=== PATIENT | male | born 1975 | race African-American/Black ===

== ENCOUNTER 2021-01-18 01:32 | Emergency (ER) | payer SELFPAY ==
--- NOTE | 2021-01-18 02:24 | NUR ---
Pt stated he doesn't want to be seen.
== END 2021-01-18 02:25 | disposition left against medical advice (07) ==
LOC: ER 01:47
DX: Z53.21 Procedure and treatment not carried out due to patient leaving prior to being seen by health care provider (principal)

== ENCOUNTER 2025-01-28 16:55 | Emergency (ER) | payer OTHER ==
[~2025-01-28] VITALS: Ht 177.8 cm; Wt 97.1 kg
[2025-01-28 18:09] LABS: PLATELET COUNT (AUTO) 190 K/uL (152-348); RED BLOOD CELL COUNT(AUTO) 5.25 MIL/uL (4.06-5.63); RED CELL DISTRIBUTION WIDTH 13.4 % (12.1-16.2); WHITE BLOOD COUNT (AUTO) 5.0 K/uL (3.6-10.2)
[2025-01-28 18:18] LABS: ACETONE, SERUM NEGATIVE (NEGATIVE); CREATININE 1.1 mg/dL (0.6-1.3); SODIUM SERUM 140 mmol/L (136-145); UREA NITROGEN, BLOOD 10 mg/dL (7-18)
[2025-01-28 18:24] LABS: FRACTIONATED INSPIRED OXYGEN-V 21.0 %; SITE, VBG VBG - N/A; VBG AaDO2 80.8 mmHg; VBG BASE EXCESS -2.0 mmol/L (-2.0-3.0); VBG HCO3 22.8 mmol/L (22.0-29.0); VBG MetHb 0.2 % (0.5-1.5); VBG O2HB 81.6 % (0-79.0); VBG PCO2 39.4 mmHg (38.0-54.0); VBG PH 7.380 (7.320-7.430); VBG PO2 45.5 mmHg (23.0-48.0); VBG TOTAL HEMOGLOBIN 16.5 G/dL (13.5-17.5)
[2025-01-28] MEDS: IV NORMAL SALINE 1000 ML BAG IV ONE (18:37)
[2025-01-28] MEDS ORDERED: METF-440 PO (18:54)
[2025-01-28] MEDS: METFORMIN HCL 500 MG TABLET PO ONE (19:00)
[2025-01-28] MEDS ORDERED: METFORMIN HCL 500 MG TABLET ONE (19:57)
[2025-01-28 20:07] VITALS: BP 185/135; O2SAT 96
== END 2025-01-28 20:13 | disposition home or self-care (01) ==
LOC: ER 17:03
DX: E11.65 Type 2 diabetes mellitus with hyperglycemia (principal); F20.0 Paranoid schizophrenia; I10 Essential (primary) hypertension
CPT/HCPCS: 99283; 96360; 80048; 82009; 82962 ×2; 85025; 36415; 36600; J7040; A4606; A4663